=== PATIENT | male | born 2000 | race Caucasian/White ===

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

== ENCOUNTER 2019-02-07 19:00 | Observation (INO) | payer OTHER ==
[2019-02-07] MEDS ORDERED: CEFTRIAXONE 1 GM (PREMIX) 1 GM/50 ML SOL IV ONE (19:13)
[2019-02-07] MEDS ORDERED: SODIUM CHLORIDE 0.9% 50 ML 25 ML IV PRN (19:13)
[2019-02-07] MEDS ORDERED: SODIUM CHLORIDE 0.9% 1000ML 1,000 ML IV ONE (19:13)
[2019-02-07 19:18] LABS: BASOPHILS % (AUTO) 2 % (0-3); EOSINOPHILS % (AUTO) 7 % (0-9); HEMATOCRIT 44 % (39-53); HEMOGLOBIN 14.8 gm/dl (13.5-17.7); LYMPHOCYTES % (AUTO) 35.8 % (10-50); MEAN CORPUSCULAR HEMOGLOBIN 29.8 pg (27.0-32.0); MEAN CORPUSCULAR HGB CONC 33.4 gm/dl (32.0-36.0); MEAN CORPUSCULAR VOLUME 89 fL (80-100); MONOCYTES % (AUTO) 7.2 % (0-12); NEUTROPHILS % (AUTO) 48.9 % (37-80)
[2019-02-07 19:31] LABS: BLOOD UREA NITROGEN 16 mg/dl (7-18); CALCIUM 8.7 mg/dl (8.5-10.1); CARBON DIOXIDE 27.5 mEq/L (21-32); CHLORIDE 102 mMol/L (98-107); CREATINE KINASE 476 U/L (39-308); CREATININE 0.98 mg/dl (0.80-1.30); GLUCOSE 135 mg/dl (74-106); TROP I < 0.017 ng/ml (0.000-0.056)
[2019-02-07] MEDS ORDERED: CEFTRIAXONE 1 GM PDS ONE (19:42)
[2019-02-07] MEDS ORDERED: MORPHINE SULFATE 10 MG/ML SOL IV ONE (19:45)
[2019-02-07] MEDS ORDERED: MORPHINE SULFATE 10 MG/ML SOL ONE (19:46)
[2019-02-07] MEDS: SODIUM CHLORIDE 0.9% 1000ML 1,000 ML IV SCH (23:31)
[2019-02-08] MEDS: APAP/HYDROCODONE 1 EACH TABLET PO PRN ×2 (02:32→16:45)
[2019-02-08] MEDS: SODIUM CHLORIDE 0.9% 1000ML 1,000 ML IV SCH ×2 (07:40→16:46)
[2019-02-08 07:48] LABS: ALBUMIN 3.5 gm/dl (3.4-5.0); BILIRUBIN,TOTAL 0.6 mg/dl (0.2-1.0); CALCIUM 7.8 mg/dl (8.5-10.1); CREATININE 0.76 mg/dl (0.80-1.30); TOTAL PROTEIN 6.3 gm/dl (6.4-8.2)
[2019-02-09] MEDS: SODIUM CHLORIDE 0.9% 1000ML 1,000 ML IV SCH (00:43)
[2019-02-09] MEDS: APAP/HYDROCODONE 1 EACH TABLET PO PRN (06:06)
[2019-02-09 07:39] LABS: CALCIUM 8.2 mg/dl (8.5-10.1); CARBON DIOXIDE 26.6 mEq/L (21-32); CREATININE 0.75 mg/dl (0.80-1.30)
[2019-02-09 08:49] VITALS: BP 119/73; PULSE 52; RESP 14; TEMP 98.2; O2SAT 97
== END 2019-02-09 10:00 | disposition home or self-care (01) | DRG 605 ==
LOC: ED 19:00 → ACUTE CARE 20:17 → UNDOADMOB 20:17 → ACUTE CARE 20:22
PROVIDERS: ADMIT Family Medicine; ATTEND Family Medicine
DX: S20.211A Contusion of right front wall of thorax, initial encounter (principal); M62.82 Rhabdomyolysis; S40.021A Contusion of right upper arm, initial encounter; R40.2412 Glasgow coma scale score 13-15, at arrival to emergency department; W31.89XA Contact with other specified machinery, initial encounter; M79.601 Pain in right arm; G56.31 Lesion of radial nerve, right upper limb
CPT/HCPCS: 36415; 71045; 73060; 80048; 80053; 82550; 84484; 85025; 96365; 96374; 99070; 99219; 99284; G0390; J0696; J2270; A9270-GY